=== PATIENT | male | born 1990 | race Hispanic/Latino ===

== ENCOUNTER 2017-06-07 14:53 | Emergency (ER) | payer OTHER ==
[~2017-06-07] VITALS: Ht 172.7 cm; Wt 116.1 kg
[~2017-06-07 14:53] MED LIST: ATIVAN0.5 M1 PO; ATIVAN1 MG PO; PREDNISONE 20MG20 MG PO
[2017-06-07 14:59] VITALS: BP 134/73
--- NOTE | 2017-06-07 15:29 | ED CARDIAC/CP/PALPITATIONS ---
History of Present Illness General Chief Complaint: Chest Pain Stated Complaint: CHEST PAIN Source: patient, old records Exam Limitations: no limitations Vital Signs & Intake/Output Vital Signs & Intake/Output Vital Signs Date Time Temp Pulse Resp B/P B/P Pulse O2 O2 Flow FiO2 Mean Ox Delivery Rate 06/07 1545 98.6 06/07 1459 98.6 60 18 134/73 97 Room Air Allergies Coded Allergies: NO KNOWN ALLERGIES (09/17/11) Reconcile Medications No Known Home Medications Triage Note: 27 YO MALE TO TRIAGE FROM URGENT CARE. PT C/O L SIDED CHEST PAIN SINCE YESTERDAY AFTER DOING A BOOT CAMP WORKOUT. REPORTS HE WENT TO [facility] LAST PM BUT THE WAIT WAS TO LONG SO HE LEFT, WENT TO THE WALK-IN TODAY WHO DID AN EKG AND ADVISED HIM TO COME TO THE ER FRO EVAL. (EKG FROM WALK IN PALCED IN PTS CHART) PT STATES HE HAD +NAUSEA YESTERDAY BUT DECLINS AT THIS TIME. TAKENT O FAM ON ARRIVAL FOR EKG. Triage Nurses Notes Reviewed? yes Onset: Afternoon Duration: day(s):, constant, continues in ED Timing: recent history Quality/Severity: mild, tightness Location: substernal Radiation: no radiation Activities at Onset: activity Prior Chest Pain/Card Workup: no prior cardiac workup Modifying Factors: Worsens With: exercise, movement. Nitro Today/Relief: no nitro taken today Aspirin Today: no aspirin today Associated Symptoms: dizziness, shortness of breath HPI: 1 day prior to admission while doing upper body exercise patient developed left- sided chest pain described as tight worse with arm movement and deep breath associated with shortness of breath dizziness. The pain continued he went to [facility] and was was not evaluated as he felt it was too long. Prior to admission he went to the [facility] and was referred for further evaluation. Denies fever chills nausea vomiting diarrhea abdominal pain headache dysuria rash bleeding Past History Travel History Traveled to [place] past 21 day No Medical History Any Pertinent Medical History? see below for history Cardiovascular: IREEG HEARTBEAT Respiratory: asthma Gastrointestinal: GERD Psychiatric: anxiety Surgical History Surgical History: non-contributory Psychosocial History What is your primary language Marshallese Tobacco Use: Never used Family History Hx Contributory? No Review of Systems Review of Systems Constitutional: Reports: no symptoms. EENTM: Reports: no symptoms. Respiratory: Reports: see HPI, short of breath. Cardiovascular: Reports: see HPI, chest pain. GI: Reports: no symptoms. Genitourinary: Reports: no symptoms. Musculoskeletal: Reports: no symptoms. Skin: Reports: no symptoms. Neurological/Psychological: Reports: see HPI. Hematologic/Endocrine: Reports: no symptoms. Immunologic/Allergic: Reports: no symptoms. All Other Systems: Reviewed and Negative Physical Exam Physical Exam General Appearance: well developed/nourished, alert, awake, anxious, comfortable , obese Head: atraumatic, normal appearance Eyes: Bilateral: normal appearance, PERRL, EOMI. Ears, Nose, Throat: normal pharynx, normal ENT inspection Neck: normal inspection, supple, full range of motion, no midline tenderness Respiratory: normal breath sounds, no respiratory distress, quiet respiration, lungs clear, tender left pectoral major Cardiovascular: regular rate/rhythm, normal peripheral pulses, norml femoral pulses equa Peripheral Pulses: 4+ carotid (R), 4+ carotid (L) Gastrointestinal: normal bowel sounds, soft, non-tender, no organomegaly Back: normal inspection, normal range of motion Extremities: normal inspection, normal capillary refill, normal range of motion, no edema Neurologic/Psych: no motor/sensory deficits, awake, alert, oriented x 3, normal gait, normal mood/affect, child support case officer II-XII nml as tested Reflexes: 2+: bicep (R), bicep (L). Skin: intact, normal color, warm/dry Lymphatic: no anterior cervical janae Core Measures ACS in differential dx? No CVA/TIA Diagnosis No Sepsis Present: No Sepsis Focused Exam Completed? No Progress Differential Diagnosis: costochondritis, hyperkalemia, hypovolemia, hyperthyroid , musculoskeletal pain, pancreatitis, pneumonia Plan of Care: Orders Procedure Date/time Status TSH REFLEX 06/07 1527 Complete TROPONIN LEVEL 06/07 1527 Complete MAGNESIUM 06/07 1527 Complete LIPASE 06/07 1527 Complete COMPREHENSIVE METABOLIC PANEL 06/07 1527 Complete CBC WITHOUT DIFFERENTIAL 06/07 152 Complete EKG 06/07 1454 Active Laboratory Tests 06/07/17 1546: Anion Gap 12, Estimated GFR > 60, BUN/Creatinine Ratio 16.3, Glucose 98, Calcium 9.0, Magnesium 1.7, Total Bilirubin 0.7, AST 21, ALT 28, Alkaline Phosphatase 74 , Troponin I < 0.01, Total Protein 6.8, Albumin 3.8, Globulin 3.0, Albumin/ Globulin Ratio 1.3, Lipase 55, TSH &T3 &Free T4 Intrp 1.060, CBC w Diff NO MAN DIFF REQ, RBC 5.60, MCV 79.6 L, MCH 26.2 L, MCHC 32.9 L, RDW 13.9, MPV 7.5, Gran % 65.9, Lymphocytes % 23.0, Monocytes % 8.1, Eosinophils % 2.2, Basophils % 0.8, Absolute Granulocytes 4.8, Absolute Lymphocytes 1.7, Absolute Monocytes 0.6 , Absolute Eosinophils 0.2, Absolute Basophils 0.1 Diagnostic Imaging: Viewed by Me: Radiology Read. Discussed w/RAD: Radiology Read. Radiology Impression: no acute abnormality Initial ED EKG: normal axis, normal intervals, normal p-waves, normal QRS complex, normal sinus rhythm, nonspecific ST T wave chg, t 3 aVF Prior EKG: unchanged Rhythm Strip: normal sinus rhythm Departure Departure Time of Disposition: 1643 Disposition: HOME OR SELF CARE Condition: Stable Clinical Impression Primary Impression: Chest wall pain Secondary Impressions: Musculoskeletal chest pain Referrals: Shannon Echavarria APRN (PCP/Family) Departure Forms: Customer Survey General Discharge Information Prescriptions: Current Visit Scripts Ibuprofen 1 TAB PO Q6P PRN pain #30 TAB with food Baclofen 1 TAB PO TIDPRN PRN muscle spasm/strain #30 TAB Critical Care Note Critical Care Note Critical Care Time: non-applicable
[2017-06-07 15:54] LABS: ABSOLUTE BASOPHIL COUNT 0.1 /CUMM (0.0-0.2); ABSOLUTE EOSINOPHIL COUNT 0.2 /CUMM (0.0-0.7); ABSOLUTE GRANULOCYTE CT 4.8 /CUMM (1.4-6.5); ABSOLUTE LYMPH COUNT 1.7 /CUMM (1.2-3.4); ABSOLUTE MONOCYTE COUNT 0.6 /CUMM (0.10-0.60); BASOPHIL % 0.8 % (0.0-2.0); EOSINOPHIL % 2.2 % (0-5); GRANULOCYTE % 65.9 % (42.2-75.2); HEMATOCRIT 44.6 % (42-52); MEAN CORPUSCULAR HGB 26.2 PG (27.0-31.0); MEAN CORPUSCULAR HGB CONC 32.9 G/DL (33.0-37.0); MEAN CORPUSCULAR VOLUME 79.6 FL (80.0-94.0); MEAN PLATELET VOLUME 7.5 FL (7.4-10.4); PLATELET COUNT 209 /CUMM (130-400); RBC DISTRIBUTION WIDTH 13.9 % (11.5-14.5); WHITE BLOOD CELL COUNT 7.4 /CUMM (4.8-10.8)
--- NOTE | 2017-06-07 16:24 | RADIOLOGY REPORT ---
EXAMINATION: XR CHEST CLINICAL INFORMATION: Chest pain COMPARISON: None TECHNIQUE: 2 views of the chest were obtained. FINDINGS: The cardiomediastinal silhouette is normal. The lungs are clear. No consolidation, pulmonary edema, pleural effusion, pneumothorax. No acute osseous abnormality. IMPRESSION: No acute abnormality.
[2017-06-07] MEDS ORDERED: BACLOFEN10 M1 PO (16:45)
[2017-06-07] MEDS ORDERED: IBUPROFEN600 M1 PO (16:45)
== END 2017-06-07 16:57 ==
LOC: ERH 14:53
PROVIDERS: Emergency Medicine
DX: R07.89 Other chest pain (principal)
CPT/HCPCS: 71046; 93005; 93010